=== PATIENT | male | born 1980 | race Caucasian/White ===

== ENCOUNTER 2022-06-16 18:18 | Emergency (ER) | payer OTHER | END 2022-06-16 23:35 | disposition home or self-care (01) | LOC: ER1 18:18 | DX: R51.9 Headache, unspecified (principal); Z96.641 Presence of right artificial hip joint; F17.210 Nicotine dependence, cigarettes, uncomplicated; Z20.822 Contact with and (suspected) exposure to COVID-19 | CPT/HCPCS: 0240U; 70450; 96361; 96374; 99284; J1885 ==